=== PATIENT | female | born 1935 | race Caucasian/White ===

== ENCOUNTER 2018-11-27 08:05 | Observation (INO) | payer MEDICARE, BC ==
[2018-11-27 09:13] LABS: CHLORIDE,CL 87 mmol/L (98-107)
[2018-11-27 09:14] LABS: SODIUM,NA 124 mmol/L (136-145)
[2018-11-27] MEDS ORDERED: Sodium Chloride 0.9% 10 ML Syringe FLUSH PRN (09:17)
[2018-11-27] MEDS ORDERED: Sodium Chloride 0.9% 1,000 ML IV ONE (09:17)
[2018-11-27] MEDS ORDERED: Loperamide 2 MG Cap PO PRN (10:07)
--- NOTE | 2018-11-27 10:29 | EDM.PDOC ---
ED HPI GENERAL MEDICAL PROBLEM - General Chief Complaint: Gastrointestinal Problem Time Seen by Provider: 11/27/18 08:08 Source of Information: Reports: Patient History Limitations: Reports: No Limitations - History of Present Illness INITIAL COMMENTS - FREE TEXT/NARRATIVE: Pt. presents to ER with complaints of diarrhea, fatigue, and weakness. Pt. states that she developed the diarrhea yesterday AM. She states that she is also nauseated but has not been vomiting. She states that her stools have not been dark, tarry, or bloody. Denies any chest pain or shortness of breath. She states that she has not been around any ill contacts that she is aware of. She states that she has not been checking her temperature, but states that she has been feeling chilled. She does complain of diffuse abdominal cramping but no focal discomfort. Denies any abdominal discomfort. Denies any dysuria. No blood in urine. Denies any rashes. Denies any sore throat or sinus congestion. Denies any cough or other respiratory symptoms. To note,her tegretol was recently increased in the clinic. Onset Date: 11/26/18 Location: Reports: Generalized Severity: Mild Associated Symptoms: Reports: Fever/Chills, Nausea/Vomiting, Weakness. Denies: Chest Pain, Cough, Syncope - Related Data Allergies Allergy/AdvReac Type Severity Reaction Status Date / Time bisacodyl AdvReac Nausea and Verified 11/27/18 10:07 [From Dulcolax (bisacodyl)] Vomiting lamotrigine [From Lamictal] AdvReac Abdominal Verified 11/27/18 10:07 Pain lisinopril AdvReac Cough Verified 11/27/18 10:07 morphine AdvReac Nausea and Verified 11/27/18 10:07 Vomiting pregabalin [From Lyrica] AdvReac Dizziness Verified 11/27/18 10:07 Home Meds: Home Meds Alendronate [Fosamax] 70 mg PO Q7D@0600 11/09/13 [History] Aspirin [Carisa Chewable] 81 mg PO DAILY 11/09/13 [History] Beta-Carotene(A) w/C & E/Min [Prosight] 1 tab PO DAILY 11/09/13 [History] Flaxseed Oil [Flax Oil] 1,000 mg PO DAILY 11/09/13 [History] Multivitamin [Multi Vitamin Daily] 1 each PO DAILY 11/09/13 [History] Naproxen Sodium [Aleve] 220 mg PO ASDIRECTED PRN 11/09/13 [History] carBAMazepine [TEGretol XR] 200 mg PO QID 11/09/13 [History] Betamethasone Valerate [Valisone 0.1% Crm] 0 gm TOP BID 11/27/18 [History] Calcium Carbonate/Vitamin D3 [Calcium Carbonate/Vitamin D 600 MG-200 Unit] 1 tab PO DAILY 11/27/18 [History] Olmesartan/Hydrochlorothiazide [Benicar HCT 40-25 MG] 1 tab PO DAILY 11/27/18 [ History] Past Medical History Cardiovascular History: Reports: High Cholesterol, Hypertension Other Cardiovascular History: intracranial aneurysm Gastrointestinal History: Reports: GERD Other Neuro History: trigeminal neuralgia Endocrine/Metabolic History: Reports: Osteopenia Other Endocrine/Metabolic History: goiter - Past Surgical History Cardiovascular Surgical History: Reports: Aneurysm Musculoskeletal Surgical History: Reports: Shoulder Replacement Social & Family History - Tobacco Use Smoking Status *Q: Never Smoker ED ROS GENERAL - Review of Systems Review Of Systems: See Below Constitutional: Reports: No Symptoms HEENT: Reports: No Symptoms Respiratory: Reports: No Symptoms Cardiovascular: Reports: No Symptoms Endocrine: Reports: No Symptoms GI/Abdominal: Reports: Abdominal Pain, Diarrhea, Flatus. Denies: Hematemesis, Hematochezia, Melena, Mucous in Stool : Reports: No Symptoms Musculoskeletal: Reports: No Symptoms Skin: Reports: No Symptoms Neurological: Reports: No Symptoms Psychiatric: Reports: No Symptoms Hematologic/Lymphatic: Reports: No Symptoms ED EXAM, GENERAL - Physical Exam Exam: See Below Exam Limited By: No Limitations General Appearance: Alert, WD/WN, No Apparent Distress, Anxious Eye Exam: Bilateral Eye: EOMI, PERRL Nose: Normal Inspection, Normal Mucosa, No Blood Throat/Mouth: Normal Inspection, Normal Lips, Normal Teeth, Normal Gums, Normal Oropharynx, Normal Voice, No Airway Compromise Head: Atraumatic, Normocephalic Neck: Normal Inspection, Supple, Non-Tender, Full Range of Motion Respiratory/Chest: No Respiratory Distress, Lungs Clear, Normal Breath Sounds, No Accessory Muscle Use, Chest Non-Tender Cardiovascular: Normal Peripheral Pulses, Regular Rate, Rhythm, No Edema, No Gallop, No JVD, No Murmur, No Rub Peripheral Pulses: 4+: Radial (R) GI/Abdominal: Normal Bowel Sounds, Soft, Non-Tender, No Organomegaly, No Distention, No Abnormal Bruit, No Mass (Female) Exam: Deferred Rectal (Female) Exam: Deferred Back Exam: Normal Inspection Extremities: Normal Inspection, Non-Tender, Normal Capillary Refill Neurological: Alert, Oriented, CN II-XII Intact, Normal Cognition, Normal Gait, Normal Reflexes, No Motor/Sensory Deficits Psychiatric: Normal Affect, Normal Mood, Anxious Skin Exam: Warm, Dry, Intact, Normal Color, No Rash Lymphatic: No Adenopathy Course - Vital Signs Last Recorded V/S: Last Vital Signs Temp 36.7 C 11/27/18 08:08 Pulse 86 11/27/18 08:08 Resp 18 11/27/18 08:08 BP 160/80 H 11/27/18 08:47 Pulse Ox 96 11/27/18 08:08 - Orders/Labs/Meds Orders: Active Orders 24 hr Category Date Time Status Sodium Chloride 0.9% [Normal Saline] 1,000 ml Med 11/27/18 09:17 Active IV .BOLUS Sodium Chloride 0.9% [Saline Flush] Med 11/27/18 09:17 Active 10 ml FLUSH ASDIRECTED PRN Peripheral IV Insertion Adult [OM.PC] Routine Oth 11/27/18 09:17 Ordered Medication Orders Aspirin (Aspirin) 81 mg PO DAILY JAM[facility] Sodium Chloride (Normal Saline) 1,000 mls @ 250 mls/hr IV .BOLUS ONE Stop: 11/27/18 13:16 Last Admin: 11/27/18 09:46 Dose: 250 mls/hr Sodium Chloride (Normal Saline) 1,000 mls @ 125 mls/hr IV .BOLUS ONE Stop: 11/27/18 18:18 Loperamide HCl (Imodium) 2 mg PO Q4H PRN PRN Reason: Diarrhea Non-Formulary Medication (Calcium Carbonate/Vitamin D3) 1 tab PO DAILY JAM[facility] Non-Formulary Medication (Carbamazepine [Tegretol Xr]) 200 mg PO QID JAMIL Non-Formulary Medication (Flaxseed Oil [Flax Oil]) 1,000 mg PO DAILY [facility] Non-Formulary Medication (Multivitamin [Multi-Vitamin Daily]) 1 each PO DAILY [facility] Non-Formulary Medication (Naproxen Sodium [Aleve]) 220 mg PO ASDIRECTED PRN PRN Reason: Pain Non-Formulary Medication (Olmesartan/Hydrochlorothiazide [Benicar Hct 40-25 Mg] ) 1 tab PO DAILY [facility] Sodium Chloride (Saline Flush) 10 ml FLUSH ASDIRECTED PRN PRN Reason: Keep Vein Open Trimethoprim/Sulfamethoxazole (Septra Ds) 1 tab PO BID [facility] Labs: Laboratory Tests 11/27/18 11/27/18 11/27/18 Range/Units 08:40 08:40 08:40 WBC 8.3 (4.0-10.0) x10^3/uL RBC 3.75 L (4.00-5.50) x10^6/uL Hgb 12.0 (12.0-16.0) g/dL Hct 34.1 (33.0-47.0) % MCV 90.9 (78.0-93.0) fL MCH 32.0 (26.0-32.0) pg MCHC 35.2 (32.0-36.0) g/dL RDW Coeff of Katlyn 12.6 (10.0-15.0) % Plt Count 292 (130-400) x10^3/uL Neut % (Auto) 83.3 H (50.0-80.0) % Lymph % (Auto) 10.3 L (25.0-50.0) % [place] % (Auto) 5.8 (2.0-11.0) % Eos % (Auto) 0.4 (0.0-4.0) % Baso % (Auto) 0.2 (0.2-1.2) % PT 10.3 (10.0-12.8) SEC INR 0.9 L (2.0-3.5) Sodium 124 L* D (136-145) mmol/L Potassium 4.0 (3.5-5.1) mmol/L Chloride 87 L D (98-107) mmol/L Carbon Dioxide 27 (21-32) mmol/L Anion Gap 14.0 (10-20) mmol/L BUN 10 (7-18) mg/dL Creatinine 1.0 (0.55-1.02) mg/dL Est Cr Clr Drug Dosing TNP Estimated GFR (MDRD) 53 Glucose 118 H (74-106) mg/dL Calcium 8.9 (8.5-10.1) mg/dL Corrected Calcium 9.06 (8.5-10.1) mg/dL Phosphorus 2.9 (2.6-4.7) mg/dL Magnesium 1.7 L (1.8-2.4) mg/dL Total Bilirubin 0.5 (0.2-1.0) mg/dL AST 29 (15-37) U/L ALT 36 (14-59) U/L Alkaline Phosphatase 79 (46-116) U/L C-Reactive Protein 1.2 H (<=0.9) mg/dL Total Protein 7.8 (6.4-8.2) g/dL Albumin 3.8 (3.4-5.0) g/dL Globulin 4.0 Albumin/Globulin Ratio 0.95 Urine Color (YELLOW) Urine Appearance (CLEAR) Urine pH (5.0-8.0) Ur Specific [place] Urine Protein (NEGATIVE) mg/dL Urine Glucose (UA) (NEGATIVE) mg/dL Urine Ketones (NEGATIVE) mg/dL Urine Occult Blood (NEGATIVE) Urine Nitrite (NEGATIVE) Urine Bilirubin (NEGATIVE) Urine Urobilinogen (0.2) EU/dL Ur Leukocyte Esterase (NEGATIVE) Urine RBC (NOT SEEN) /HPF Urine WBC (NOT SEEN) /HPF Ur Squamous Epith Cells (NEGATIVE) /HPF Urine Bacteria (NEGATIVE) /HPF 11/27/18 Range/Units 08:49 WBC (4.0-10.0) x10^3/uL RBC (4.00-5.50) x10^6/uL Hgb (12.0-16.0) g/dL Hct (33.0-47.0) % MCV (78.0-93.0) fL MCH (26.0-32.0) pg MCHC (32.0-36.0) g/dL RDW Coeff of Katlyn (10.0-15.0) % Plt Count (130-400) x10^3/uL Neut % (Auto) (50.0-80.0) % Lymph % (Auto) (25.0-50.0) % [place] % (Auto) (2.0-11.0) % Eos % (Auto) (0.0-4.0) % Baso % (Auto) (0.2-1.2) % PT (10.0-12.8) SEC INR (2.0-3.5) Sodium (136-145) mmol/L Potassium (3.5-5.1) mmol/L Chloride (98-107) mmol/L Carbon Dioxide (21-32) mmol/L Anion Gap (10-20) mmol/L BUN (7-18) mg/dL Creatinine (0.55-1.02) mg/dL Est Cr Clr Drug Dosing Estimated GFR (MDRD) Glucose (74-106) mg/dL Calcium (8.5-10.1) mg/dL Corrected Calcium (8.5-10.1) mg/dL Phosphorus (2.6-4.7) mg/dL Magnesium (1.8-2.4) mg/dL Total Bilirubin (0.2-1.0) mg/dL AST (15-37) U/L ALT (14-59) U/L Alkaline Phosphatase (46-116) U/L C-Reactive Protein (<=0.9) mg/dL Total Protein (6.4-8.2) g/dL Albumin (3.4-5.0) g/dL Globulin Albumin/Globulin Ratio Urine Color Yellow (YELLOW) Urine Appearance Slightly cloudy H (CLEAR) Urine pH 7.5 (5.0-8.0) Ur Specific [place] 1.015 Urine Protein Negative (NEGATIVE) mg/dL Urine Glucose (UA) Negative (NEGATIVE) mg/dL Urine Ketones Negative (NEGATIVE) mg/dL Urine Occult Blood Trace-intact H (NEGATIVE) Urine Nitrite Negative (NEGATIVE) Urine Bilirubin Negative (NEGATIVE) Urine Urobilinogen 0.2 (0.2) EU/dL Ur Leukocyte Esterase Trace H (NEGATIVE) Urine RBC 5-10 H (NOT SEEN) /HPF Urine WBC 5-10 H (NOT SEEN) /HPF Ur Squamous Epith Cells Few H (NEGATIVE) /HPF Urine Bacteria Rare (NEGATIVE) /HPF Meds: Medications Generic Name Dose Route Start Last Admin Trade Name Freq PRN Reason Stop Dose Admin Aspirin 81 mg 11/28/18 08:00 Aspirin PO DAILY JAMIL Sodium Chloride 1,000 mls @ 250 mls/hr 11/27/18 09:17 11/27/18 09:46 Normal Saline IV 11/27/18 13:16 250 mls/hr .BOLUS ONE Administration Sodium Chloride 1,000 mls @ 125 mls/hr 11/27/18 10:19 Normal Saline IV 11/27/18 18:18 .BOLUS ONE Loperamide HCl 2 mg 11/27/18 10:07 Imodium PO Q4H PRN Diarrhea Non-Formulary Medication 1 tab 11/28/18 08:00 Calcium Carbonate/Vitamin D3 PO DAILY JAMIL Non-Formulary Medication 200 mg 11/27/18 12:00 Carbamazepine [Tegretol Xr] PO QID JAMIL Non-Formulary Medication 1,000 mg 11/28/18 08:00 Flaxseed Oil [Flax Oil] PO DAILY JAMIL Non-Formulary Medication 1 each 11/28/18 08:00 Multivitamin [Multi-Vitamin Daily] PO DAILY JAMIL Non-Formulary Medication 220 mg 11/27/18 10:08 Naproxen Sodium [Aleve] PO ASDIRECTED PRN Pain Non-Formulary Medication 1 tab 11/28/18 08:00 Olmesartan/Hydrochlorothiazide [Benicar Hct 40-25 Mg] PO DAILY JAMIL Sodium Chloride 10 ml 11/27/18 09:17 Saline Flush FLUSH ASDIRECTED PRN Keep Vein Open Trimethoprim/Sulfamethoxazole 1 tab 11/27/18 10:15 Septra Ds PO BID JAMIL Departure - Departure Time of Disposition: 10:00 Disposition: Refer to Observation Clinical Impression: Gastroenteritis, Hyponatremia, UTI (urinary tract infection) - Discharge Information - Problem List Review Problem List Initiated/Reviewed/Updated: Yes - My Orders Last 24 Hours: My Active Orders 11/27/18 09:17 Sodium Chloride 0.9% [Normal Saline] 1,000 ml IV .BOLUS Sodium Chloride 0.9% [Saline Flush] 10 ml FLUSH ASDIRECTED PRN Peripheral IV Insertion Adult [OM.PC] Routine - Assessment/Plan Admission H&P: Please use this note as an admission H&P Last 24 Hours: My Active Orders 11/27/18 09:17 Sodium Chloride 0.9% [Normal Saline] 1,000 ml IV .BOLUS Sodium Chloride 0.9% [Saline Flush] 10 ml FLUSH ASDIRECTED PRN Peripheral IV Insertion Adult [OM.PC] Routine Plan: Pt. will be admitted observation. She is a code 1. She was given a bolus of normal saline in ER. will continue fluids at 125ml/hr. Start bactrim DS twice daily for UTI. SCDs of DVT prophylaxis. Continue regular diet at this time. Will continue tegretol at current dosage, however this could be contributing to her hyponatremia. Will reevaluate labs in the AM. Also will start loperamide 2mg every 4 hours for diarrhea. Son accompanied mother to ER and is aware of plan. Anticipate discharge likely tomorrow.
[2018-11-27] MEDS: Sodium Chloride 0.9% 1,000 ML IV ONE ×2 (10:40→14:27)
[2018-11-27] MEDS: Calcium Carbonate/Vitamin D3 1250 MG-200 Unit Tab PO SCH (10:47)
[2018-11-27] MEDS: Sulfamethoxazole/Trimethoprim 800-160 MG Tab PO SCH ×2 (10:47→20:09)
[2018-11-27] MEDS ORDERED: Ondansetron 4 MG in Sodium Chloride 0.9% 100 ML IV PRN (10:53)
[2018-11-27] MEDS ORDERED: Ondansetron 4 MG/2 ML SDV IVPUSH PRN (10:57)
[2018-11-27] MEDS: carBAMazepine 200 MG Tab PO SCH ×3 (11:54→20:09)
[2018-11-28 07:05] LABS: ANION GAP 13.7 mmol/L (10-20)
[2018-11-28] MEDS: Sulfamethoxazole/Trimethoprim 800-160 MG Tab PO SCH (07:59)
[2018-11-28] MEDS: Calcium Carbonate/Vitamin D3 1250 MG-200 Unit Tab PO SCH (07:59)
[2018-11-28] MEDS ORDERED: Losartan 50 MG Tab PO SCH (08:00)
[2018-11-28] MEDS: carBAMazepine 200 MG Tab PO SCH ×2 (08:00→14:01)
[2018-11-28] MEDS ORDERED: Aspirin 81 MG Tab.EC PO SCH (08:00)
[2018-11-28] MEDS ORDERED: Multivitamins with Iron/Calcium/Folic Acid/Minerals Tab PO SCH (08:00)
[2018-11-28] MEDS ORDERED: FLAXSEED OIL 1000 MG PO SCH (08:00)
[2018-11-28] MEDS ORDERED: Hydrochlorothiazide 25 MG Tab PO SCH (08:00)
--- NOTE | 2018-11-28 09:09 | PCM.PN ---
- General Info Date of Service: 11/28/18 Admission Dx/Problem (Free Text): Hospital day 2 hospitalized for gastroenteritis, hyponatremia, and UTI. She was on normal saline overnight. Her sodium was increased to 130 this AM. Staff reports that she is more alert and active than yesterday. She was started on bactrim DS twice daily as well. Pt. states that she is still having very loose stools. She also reported this AM that they were "black" stools this AM which is new. She was started on loperamide yesterday as well. Functional Status: Reports: Pain Controlled - Review of Systems General: Reports: Malaise HEENT: Reports: No Symptoms Pulmonary: Reports: No Symptoms Cardiovascular: Reports: No Symptoms Gastrointestinal: Reports: Diarrhea Genitourinary: Reports: No Symptoms Musculoskeletal: Reports: No Symptoms Skin: Reports: No Symptoms Neurological: Reports: No Symptoms Psychiatric: Reports: No Symptoms - Patient Data Vitals - Most Recent: Last Vital Signs Temp 36.6 C 11/28/18 05:50 Pulse 75 11/28/18 05:50 Resp 18 11/28/18 05:50 BP 116/65 11/28/18 08:01 Pulse Ox 96 11/28/18 05:50 Weight - Most Recent: 63.503 kg I&O - Last 24 Hours: Intake & Output 11/27/18 11/28/18 11/28/18 22:59 06:59 14:59 Intake Total 1211 1220 Output Total 600 300 Balance 611 920 Lab Results Last 24 Hours: Laboratory Results - last 24 hr 11/27/18 11/27/18 11/27/18 Range/Units 08:40 08:40 08:40 WBC 8.3 (4.0-10.0) x10^3/uL RBC 3.75 L (4.00-5.50) x10^6/uL Hgb 12.0 (12.0-16.0) g/dL Hct 34.1 (33.0-47.0) % MCV 90.9 (78.0-93.0) fL MCH 32.0 (26.0-32.0) pg MCHC 35.2 (32.0-36.0) g/dL RDW Coeff of Katlyn 12.6 (10.0-15.0) % Plt Count 292 (130-400) x10^3/uL Neut % (Auto) 83.3 H (50.0-80.0) % Lymph % (Auto) 10.3 L (25.0-50.0) % [place] % (Auto) 5.8 (2.0-11.0) % Eos % (Auto) 0.4 (0.0-4.0) % Baso % (Auto) 0.2 (0.2-1.2) % PT 10.3 (10.0-12.8) SEC INR 0.9 L (2.0-3.5) Sodium 124 L* D (136-145) mmol/L Potassium 4.0 (3.5-5.1) mmol/L Chloride 87 L D (98-107) mmol/L Carbon Dioxide 27 (21-32) mmol/L Anion Gap 14.0 (10-20) mmol/L BUN 10 (7-18) mg/dL Creatinine 1.0 (0.55-1.02) mg/dL Est Cr Clr Drug Dosing TNP Estimated GFR (MDRD) 53 Glucose 118 H (74-106) mg/dL Calcium 8.9 (8.5-10.1) mg/dL Corrected Calcium 9.06 (8.5-10.1) mg/dL Phosphorus 2.9 (2.6-4.7) mg/dL Magnesium 1.7 L (1.8-2.4) mg/dL Total Bilirubin 0.5 (0.2-1.0) mg/dL AST 29 (15-37) U/L ALT 36 (14-59) U/L Alkaline Phosphatase 79 (46-116) U/L C-Reactive Protein 1.2 H (<=0.9) mg/dL Total Protein 7.8 (6.4-8.2) g/dL Albumin 3.8 (3.4-5.0) g/dL Globulin 4.0 Albumin/Globulin Ratio 0.95 Urine Color (YELLOW) Urine Appearance (CLEAR) Urine pH (5.0-8.0) Ur Specific [place] Urine Protein (NEGATIVE) mg/dL Urine Glucose (UA) (NEGATIVE) mg/dL Urine Ketones (NEGATIVE) mg/dL Urine Occult Blood (NEGATIVE) Urine Nitrite (NEGATIVE) Urine Bilirubin (NEGATIVE) Urine Urobilinogen (0.2) EU/dL Ur Leukocyte Esterase (NEGATIVE) Urine RBC (NOT SEEN) /HPF Urine WBC (NOT SEEN) /HPF Ur Squamous Epith Cells (NEGATIVE) /HPF Urine Bacteria (NEGATIVE) /HPF 11/27/18 11/28/18 Range/Units 08:49 06:32 WBC (4.0-10.0) x10^3/uL RBC (4.00-5.50) x10^6/uL Hgb (12.0-16.0) g/dL Hct (33.0-47.0) % MCV (78.0-93.0) fL MCH (26.0-32.0) pg MCHC (32.0-36.0) g/dL RDW Coeff of Katlyn (10.0-15.0) % Plt Count (130-400) x10^3/uL Neut % (Auto) (50.0-80.0) % Lymph % (Auto) (25.0-50.0) % [place] % (Auto) (2.0-11.0) % Eos % (Auto) (0.0-4.0) % Baso % (Auto) (0.2-1.2) % PT (10.0-12.8) SEC INR (2.0-3.5) Sodium 130 L (136-145) mmol/L Potassium 3.7 (3.5-5.1) mmol/L Chloride 95 L (98-107) mmol/L Carbon Dioxide 25 (21-32) mmol/L Anion Gap 13.7 (10-20) mmol/L BUN 8 (7-18) mg/dL Creatinine 0.9 (0.55-1.02) mg/dL Est Cr Clr Drug Dosing 36.80 Estimated GFR (MDRD) 60 Glucose 98 (74-106) mg/dL Calcium 8.1 L (8.5-10.1) mg/dL Corrected Calcium (8.5-10.1) mg/dL Phosphorus (2.6-4.7) mg/dL Magnesium (1.8-2.4) mg/dL Total Bilirubin (0.2-1.0) mg/dL AST (15-37) U/L ALT (14-59) U/L Alkaline Phosphatase (46-116) U/L C-Reactive Protein (<=0.9) mg/dL Total Protein (6.4-8.2) g/dL Albumin (3.4-5.0) g/dL Globulin Albumin/Globulin Ratio Urine Color Yellow (YELLOW) Urine Appearance Slightly cloudy H (CLEAR) Urine pH 7.5 (5.0-8.0) Ur Specific [place] 1.015 Urine Protein Negative (NEGATIVE) mg/dL Urine Glucose (UA) Negative (NEGATIVE) mg/dL Urine Ketones Negative (NEGATIVE) mg/dL Urine Occult Blood Trace-intact H (NEGATIVE) Urine Nitrite Negative (NEGATIVE) Urine Bilirubin Negative (NEGATIVE) Urine Urobilinogen 0.2 (0.2) EU/dL Ur Leukocyte Esterase Trace H (NEGATIVE) Urine RBC 5-10 H (NOT SEEN) /HPF Urine WBC 5-10 H (NOT SEEN) /HPF Ur Squamous Epith Cells Few H (NEGATIVE) /HPF Urine Bacteria Rare (NEGATIVE) /HPF Med Orders - Current: Current Medications Aspirin (Halfprin) 81 mg PO DAILY [facility] Last Admin: 11/28/18 08:00 Dose: 81 mg Calcium Carbonate (Calcium Carbonate/Vitamin D 1250 Mg-200 Unit) 1 tab PO DAILY [facility] Last Admin: 11/28/18 07:59 Dose: 1 tab Carbamazepine (Tegretol Tab) 200 mg PO QID [facility] Last Admin: 11/28/18 08:00 Dose: 200 mg Hydrochlorothiazide (Hydrochlorothiazide) 25 mg PO DAILY [facility] Last Admin: 11/28/18 08:06 Dose: 25 mg Loperamide HCl (Imodium) 2 mg PO Q4H PRN PRN Reason: Diarrhea Losartan Potassium (Cozaar) 100 mg PO DAILY [facility] Last Admin: 11/28/18 08:01 Dose: 100 mg Multivitamins/Minerals (Thera M Plus) 1 tab PO DAILY [facility] Last Admin: 11/28/18 08:00 Dose: 1 tab Naproxen (Naproxen Sodium) 220 mg PO ASDIRECTED PRN PRN Reason: Pain Flaxseed Oil [Flax Oil] 1,000mg (Own Supply) 1,000 mg PO DAILY [facility] Last Admin: 11/28/18 08:00 Dose: Not Given Ondansetron HCl (Zofran) 4 mg IVPUSH Q6H PRN PRN Reason: Nausea Last Admin: 11/27/18 11:33 Dose: 4 mg Sodium Chloride (Saline Flush) 10 ml FLUSH ASDIRECTED PRN PRN Reason: Keep Vein Open Trimethoprim/Sulfamethoxazole (Septra Ds) 1 tab PO BID J[facility] Last Admin: 11/28/18 07:59 Dose: 1 tab Discontinued Medications Sodium Chloride (Normal Saline) 1,000 mls @ 250 mls/hr IV .BOLUS ONE Stop: 11/27/18 13:16 Last Admin: 11/27/18 09:46 Dose: 250 mls/hr Sodium Chloride (Normal Saline) 1,000 mls @ 125 mls/hr IV .BOLUS ONE Stop: 11/27/18 18:18 Last Admin: 11/27/18 14:27 Dose: 125 mls/hr - Exam General: Alert, Oriented Neck: Supple Lungs: Clear to Auscultation, Normal Respiratory Effort Cardiovascular: Regular Rate, Regular Rhythm GI/Abdominal Exam: Normal Bowel Sounds, Soft, Non-Tender, No Organomegaly, No Distention Extremities: Normal Inspection, Normal Range of Motion, Non-Tender, No Pedal Edema, Normal Capillary Refill Skin: Warm, Dry Neurological: No New Focal Deficit Psy/Mental Status: Alert, Normal Affect, Normal Mood - Problem List Review Problem List Initiated/Reviewed/Updated: Yes - My Orders Last 24 Hours: My Active Orders 11/27/18 09:17 Sodium Chloride 0.9% [Saline Flush] 10 ml FLUSH ASDIRECTED PRN Peripheral IV Insertion Adult [OM.PC] Routine 11/27/18 09:22 Patient Status [ADT] Routine 11/27/18 10:05 Intake and Output [RC] 06,18 Up ad Leticia [RC] 08,20 VTE/DVT Education [RC] .PRN 11/27/18 10:06 Dietary Supplements [RC] 08,17 Code Status [Resuscitation Status] Routine 11/27/18 10:07 Loperamide [Imodium] 2 mg PO Q4H PRN 11/27/18 10:08 Naproxen Sodium 220 mg PO ASDIRECTED PRN 11/27/18 10:15 Sulfamethoxazole/Trimethoprim [Septra DS] 1 tab PO BID 11/27/18 10:22 Antiembolic Devices [RC] 08,20 Sequential Compression Device [OM.PC] Routine 11/27/18 10:45 Calcium Carbonate/Vitamin D3 [Calcium Carbonate/Vitamin D 1250 MG-200 Unit] 1 tab PO DAILY 11/27/18 10:57 Ondansetron [Zofran] 4 mg IVPUSH Q6H PRN 11/27/18 12:00 carBAMazepine [TEGretol Tab] 200 mg PO QID 11/27/18 Lunch Regular Diet [DIET] 11/28/18 08:00 Aspirin [Halfprin] 81 mg PO DAILY Flaxseed Oil [Flax Oil] 1,000 mg PO DAILY Losartan [Cozaar] 100 mg PO DAILY Multivitamins w-Iron/Ca/FA/Min [Thera M Plus] 1 tab PO DAILY hydroCHLOROthiazide 25 mg PO DAILY 11/28/18 09:01 Fecal Occult Bld Diag Imm [RC] ASDIRECTED - Plan Plan:: Initially plan was to discharge patient this AM, but will order fecal occult blood, stool culture, and c-diff. Discussed findings with patient. She [place] in a [place] by herself [place]. Will reevaluate later today after stool studies are available. All questions were answered.
--- NOTE | 2018-11-28 13:35 | PCM.DCSUM1 ---
Discharge Summary - Hospital Course HPI Initial Comments: Patient was admitted to the hospital 2 days ago for gastroenteritis, hyponatremia, and UTI. She was on normal saline overnight. Her sodium was increased to 130 this AM. Staff reports that she is more alert and active than yesterday. She was started on bactrim DS twice daily as well. She ate lunch without difficulty and is drinking oral intake without concern. Pt did have Stool occult completed which were negative. Stools continue to form more towards patients baseline. Patient denies any pain or concerns and is requesting to go home. Brief History: Pt is tolerating oral intake, stools are becoming more firm, increase in water intake, and no urinary symtpoms. Pt is requesting to go home. Diagnosis: Stroke: No Modified Radha Scale: No Symptoms at All Modified Radha Scale Score: 0 - Discharge Data Discharge Date: 11/28/18 Discharge Disposition: Home, Self-Care 01 Condition: Good - Discharge Diagnosis/Problem(s) (1) Gastroenteritis SNOMED Code(s): 87993827 ICD Code: K52.9 - NONINFECTIVE GASTROENTERITIS AND COLITIS, UNSPECIFIED Status: Acute Current Visit: Yes (2) Hyponatremia SNOMED Code(s): 56140202 ICD Code: E87.1 - HYPO-OSMOLALITY AND HYPONATREMIA Status: Acute Current Visit: Yes (3) UTI (urinary tract infection) SNOMED Code(s): 35076324 ICD Code: N39.0 - URINARY TRACT INFECTION, SITE NOT SPECIFIED Status: Acute Current Visit: Yes Qualifiers: Urinary tract infection type: site unspecified Hematuria presence: without hematuria Qualified Code(s): N39.0 - Urinary tract infection, site not specified - Patient Instructions Diet: Usual Diet as Tolerated Activity: As Tolerated Driving: May Drive Today Notify Provider of: Fever, Nausea and/or Vomiting - Discharge Plan *PRESCRIPTION DRUG MONITORING PROGRAM REVIEWED*: Not Applicable *COPY OF PRESCRIPTION DRUG MONITORING REPORT IN PATIENT MAURA: Not Applicable Prescriptions/Med Rec: Sulfamethoxazole/Trimethoprim [Septra DS] 1 tab PO BID 2 Days #4 tablet Home Medications: Home Meds Alendronate [Fosamax] 70 mg PO Q7D@0600 11/09/13 [History] Aspirin [Carisa Chewable Aspirin] 81 mg PO DAILY 11/09/13 [History] Beta-Carotene(A) w/C & E/Min [Prosight] 1 tab PO DAILY 11/09/13 [History] Flaxseed Oil [Flax Oil] 1,000 mg PO DAILY 11/09/13 [History] Multivitamin [Multi-Vitamin Daily] 1 each PO DAILY 11/09/13 [History] Naproxen Sodium [Aleve] 220 mg PO ASDIRECTED PRN 11/09/13 [History] Betamethasone Valerate [Valisone 0.1% Crm] 0 gm TOP BID 11/27/18 [History] Calcium Carbonate/Vitamin D3 [Calcium Carbonate/Vitamin D 600 MG-200 Unit] 1 tab PO DAILY 11/27/18 [History] Olmesartan/Hydrochlorothiazide [Benicar HCT 40-25 MG] 1 tab PO DAILY 11/27/18 [ History] carBAMazepine [Tegretol] 200 mg PO QID 11/27/18 [History] Loperamide [Imodium] 2 mg PO Q4H PRN cap 11/28/18 [Rx] Sulfamethoxazole/Trimethoprim [Septra DS] 1 tab PO BID 2 Days #4 tablet [Rx] carBAMazepine [TEGretol Tab] 200 mg PO QID tablet 11/28/18 [Rx] hydroCHLOROthiazide [Hydrochlorothiazide] 25 mg PO DAILY tablet 11/28/18 [Rx] Oxygen Therapy Mode: Room Air Patient Handouts: Urinary Tract Infection, Adult, [id number], Dehydration, Adult, [id number] Forms: ED Department Discharge Referrals: Nguyen Espinosa DO [Primary Care Provider] - - Discharge Summary/Plan Comment DC Time >30 min.: No - General Info Date of Service: 11/28/18 Admission Dx/Problem (Free Text: Hospital day 2 hospitalized for gastroenteritis, hyponatremia, and UTI. She was on normal saline overnight. Her sodium was increased to 130 this AM. Staff reports that she is more alert and active than yesterday. She was started on bactrim DS twice daily as well. Pt. states that she is still having very loose stools. She also reported this AM that they were "black" stools this AM which is new. She was started on loperamide yesterday as well. Functional Status: Reports: Pain Controlled - Review of Systems General: Reports: No Symptoms HEENT: Reports: No Symptoms Pulmonary: Reports: No Symptoms Cardiovascular: Reports: No Symptoms Gastrointestinal: Reports: No Symptoms Genitourinary: Reports: No Symptoms Musculoskeletal: Reports: No Symptoms Skin: Reports: No Symptoms Neurological: Reports: No Symptoms Psychiatric: Reports: No Symptoms - Patient Data Vitals - Most Recent: Last Vital Signs Temp 36.2 C 11/28/18 10:00 Pulse 72 11/28/18 10:00 Resp 18 11/28/18 10:00 BP 110/72 11/28/18 10:00 Pulse Ox 94 L 11/28/18 10:00 Weight - Most Recent: 63.503 kg I&O - Last 24 hours: Intake & Output 11/27/18 11/28/18 11/28/18 22:59 06:59 14:59 Intake Total 1211 1220 240 Output Total 600 300 Balance 611 920 240 Lab Results - Last 24 hrs: Laboratory Results - last 24 hr 11/28/18 Range/Units 06:32 Sodium 130 L (136-145) mmol/L Potassium 3.7 (3.5-5.1) mmol/L Chloride 95 L (98-107) mmol/L Carbon Dioxide 25 (21-32) mmol/L Anion Gap 13.7 (10-20) mmol/L BUN 8 (7-18) mg/dL Creatinine 0.9 (0.55-1.02) mg/dL Est Cr Clr Drug Dosing 36.80 mL/min Estimated GFR (MDRD) 60 Glucose 98 (74-106) mg/dL Calcium 8.1 L (8.5-10.1) mg/dL Med Orders - Current: Current Medications Aspirin (Halfprin) 81 mg PO DAILY [facility] Last Admin: 11/28/18 08:00 Dose: 81 mg Calcium Carbonate (Calcium Carbonate/Vitamin D 1250 Mg-200 Unit) 1 tab PO DAILY [facility] Last Admin: 11/28/18 07:59 Dose: 1 tab Carbamazepine (Tegretol Tab) 200 mg PO QID [facility] Last Admin: 11/28/18 08:00 Dose: 200 mg Hydrochlorothiazide (Hydrochlorothiazide) 25 mg PO DAILY [facility] Last Admin: 11/28/18 08:06 Dose: 25 mg Loperamide HCl (Imodium) 2 mg PO Q4H PRN PRN Reason: Diarrhea Losartan Potassium (Cozaar) 100 mg PO DAILY [facility] Last Admin: 11/28/18 08:01 Dose: 100 mg Multivitamins/Minerals (Thera M Plus) 1 tab PO DAILY [facility] Last Admin: 11/28/18 08:00 Dose: 1 tab Naproxen (Naproxen Sodium) 220 mg PO ASDIRECTED PRN PRN Reason: Pain Flaxseed Oil [Flax Oil] 1,000mg (Own Supply) 1,000 mg PO DAILY [facility] Last Admin: 11/28/18 08:00 Dose: Not Given Ondansetron HCl (Zofran) 4 mg IVPUSH Q6H PRN PRN Reason: Nausea Last Admin: 11/27/18 11:33 Dose: 4 mg Sodium Chloride (Saline Flush) 10 ml FLUSH ASDIRECTED PRN PRN Reason: Keep Vein Open Trimethoprim/Sulfamethoxazole (Septra Ds) 1 tab PO BID [facility] Last Admin: 11/28/18 07:59 Dose: 1 tab Discontinued Medications Sodium Chloride (Normal Saline) 1,000 mls @ 250 mls/hr IV .BOLUS ONE Stop: 11/27/18 13:16 Last Admin: 11/27/18 09:46 Dose: 250 mls/hr Sodium Chloride (Normal Saline) 1,000 mls @ 125 mls/hr IV .BOLUS ONE Stop: 11/27/18 18:18 Last Admin: 11/27/18 14:27 Dose: 125 mls/hr - Exam General: Reports: Alert, Oriented HEENT: Reports: Pupils Equal, Pupils Reactive, EOMI, Mucous Membr. Moist/[place] Neck: Reports: Supple Lungs: Reports: Clear to Auscultation, Normal Respiratory Effort Cardiovascular: Reports: Regular Rate, Regular Rhythm GI/Abdominal Exam: Normal Bowel Sounds, Soft, Non-Tender Back Exam: Reports: Normal Inspection, Full Range of Motion Extremities: Normal Inspection, Normal Range of Motion, Non-Tender, No Pedal Edema Skin: Reports: Warm, Dry, Intact Psy/Mental Status: Reports: Alert, Normal Affect, Normal Mood
== END 2018-11-28 14:30 | disposition home or self-care (01) ==
LOC: VM.ED 08:05 → VM.MS 09:22
PROVIDERS: ADMIT Physician Assistant; ATTEND Physician Assistant
DX: K52.9 Noninfective gastroenteritis and colitis, unspecified (principal); E87.1 Hypo-osmolality and hyponatremia; N39.0 Urinary tract infection, site not specified; I10 Essential (primary) hypertension; E78.00 Pure hypercholesterolemia, unspecified; Z88.8 Allergy status to other drugs, medicaments and biological substances; Z88.5 Allergy status to narcotic agent; Z79.82 Long term (current) use of aspirin; Z79.899 Other long term (current) drug therapy
CPT/HCPCS: 36415; 80048; 80053; 81001; 82274; 83735; 84100; 85025; 85610; 86140; 87493; 96361; 96374; 99284; A9270; G0378; J2405; J7030; 87324